=== PATIENT | female | born 1945 | race Caucasian/White ===

== ENCOUNTER → 2016-06-13 | Outpatient (CLI) | payer OTHER, MEDICARE | LOC: BHFA 13:15 | PROVIDERS: ATTEND Internal Medicine Cardiovascular Disease | DX: R01.1 Cardiac murmur, unspecified (principal) ==

== ENCOUNTER → 2016-07-22 | Outpatient (CLI) | payer OTHER, MEDICARE | LOC: BHFA 14:15 | PROVIDERS: ATTEND Internal Medicine Cardiovascular Disease | DX: I10 Essential (primary) hypertension (principal); I71.4 Abdominal aortic aneurysm, without rupture; E78.5 Hyperlipidemia, unspecified ==

== ENCOUNTER → 2016-07-29 | Outpatient (CLI) | payer OTHER, MEDICARE ==
[~2016-07-29] MED LIST: IOPAMIDOL (ISOVUE 370) 100 ML BTL IV ONE
[2016-07-29 15:09] LABS: ANION GAP 12 mEq/L (8-16); CALCIUM 9.5 mg/dL (8.5-10.4); CARBON DIOXIDE 24 mEq/l (22-31); CHLORIDE 102 mEq/L (97-110); CREATININE 0.7 mg/dL (0.6-1.0); GLOMERULAR FILTRATION RATE > 60; GLUCOSE 82 mg/dL (70-100); SODIUM 138 mEq/L (134-144)
[2016-07-29 15:10] LABS: POTASSIUM 4.4 mEq/L (3.3-5.0)
== END ==
LOC: FIMAGING 13:43
PROVIDERS: ATTEND Radiology Diagnostic Radiology
DX: Z09 Encounter for follow-up examination after completed treatment for conditions other than malignant neoplasm (principal); I71.4 Abdominal aortic aneurysm, without rupture
CPT/HCPCS: 74174; Q9967

== ENCOUNTER → 2017-01-04 | Outpatient (CLI) | payer OTHER, MEDICARE | LOC: FIMAGING 10:22 | PROVIDERS: ATTEND Registered Nurse | DX: M79.674 Pain in right toe(s) (principal) ==

== ENCOUNTER → 2017-01-05 | Outpatient (CLI) | payer OTHER, MEDICARE | LOC: FIMAGING 08:38 | PROVIDERS: ATTEND Radiology Diagnostic Radiology | DX: I71.4 Abdominal aortic aneurysm, without rupture (principal); N28.1 Cyst of kidney, acquired | CPT/HCPCS: 74174; Q9967 ==

== ENCOUNTER → 2017-02-09 | Outpatient (CLI) | payer OTHER, MEDICARE | LOC: FIMAGING 08:13 | PROVIDERS: ATTEND Family Medicine | DX: M16.12 Unilateral primary osteoarthritis, left hip (principal); M47.896 Other spondylosis, lumbar region; M47.897 Other spondylosis, lumbosacral region ==

== ENCOUNTER → 2017-06-07 | Outpatient (CLI) | payer OTHER, MEDICARE | LOC: FIMAGING 09:58 → EDSTATUS 09:59 | PROVIDERS: ATTEND Family Medicine | DX: M41.84 Other forms of scoliosis, thoracic region (principal); R07.81 Pleurodynia ==

== ENCOUNTER 2018-03-24 16:36 | Emergency (ER) | payer OTHER, MEDICARE ==
[2018-03-24 16:48] VITALS: BP 144/81
--- NOTE | 2018-03-24 16:54 | EDPHY ---
H & P Stated Complaint: Hand Lac Time Seen by Provider: 03/24/18 16:40 HPI/ROS: CHIEF COMPLAINT: Left hand laceration HISTORY OF PRESENT ILLNESS: 72-year-old female presents with left hand laceration. 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 Moderate bleeding, now stopped. Mild pain. Unknown tetanus. ROS: No numbness, weakness, excessive bleeding, syncopal episode, other injury. - Personal History Current Tetanus Diphtheria and Acellular Pertussis (TDAP): Yes - Medical/Surgical History Hx Asthma: No Hx Chronic Respiratory Disease: No Hx Diabetes: No Hx Cardiac Disease: No Hx Renal Disease: No Hx Cirrhosis: No Hx Alcoholism: No Hx HIV/AIDS: No Hx Splenectomy or Spleen Trauma: No Other PMH: hypothyroid, mini stroke may 2015, bunionectomy on the left, abdominal aortic aneurysm repair 04/2016,rare irregular pattern seen on heart monitor 01/2016,scoliosis,interstitual lung disease mild case (fibrosis) pt states, cataracts starting in 2015 - Social History Smoking Status: Never smoked Alcohol Use: Sober - Physical Exam Exam: Alert and oriented, pleasant Extremities: Left hand-1 cm laceration on the dorsal aspect of the left hand, between the 1st and 2nd metacarpals Skin: As above Neuro: Motor intact to active resistance and sensory intact to light touch Vascular: Capillary refill brisk distally. Constitutional: Initial Vital Signs Temperature (C) 36.7 C 03/24/18 16:46 Heart Rate 90 03/24/18 16:46 Respiratory Rate 18 03/24/18 16:46 Blood Pressure 144/81 H 03/24/18 16:46 O2 Sat (%) 92 03/24/18 16:46 O2 Delivery Mode Room Air Allergies/Adverse Reactions: No Known Allergies Allergy (Verified 04/10/17 15:13) Home Medications: Medication Instructions Recorded Aspirin [Aspirin 81mg (*)] 81 mg PO DAILY 10/28/15 Levothyroxine [Synthroid 112 mcg 112 mcg PO DAILY06 #30 tab 04/27/16 (*)] Atorvastatin Calcium [Lipitor 20 20 mg PO HS 04/03/17 mg (*)] Cholecalciferol Vit D3 [Vitamin D3 1,000 units PO DAILY 04/03/17 (*)] Herbals/Supplements -Info Only 1 ea PO DAILY 04/03/17 Losartan Potassium [Cozaar 50 mg 50 mg PO DAILY 04/03/17 (*)] Metoprolol Succinate Xr [Toprol Xl 12.5 mg PO HS 04/03/17 25 mg (*)] Multivitamins [Multivitamin (*)] 1 each PO DAILY 04/03/17 [place]-3 Fatty Acids [Fish Oil 1000 1,000 mg PO DAILY 04/03/17 mg (*)] Vitamin B Complex [B Complex] 1 each PO DAILY 04/03/17 Medical Decision Making Procedures: Procedure: Laceration repair. The 1 cm laceration on the hand was anesthetized using lidocaine. The wound was irrigated, draped and explored to its base with a gloved finger. There were no deep structures involved. No foreign body palpable. The wound was repaired with 5 0 nylon. The wound repair was simple. - Data Points Medications Given: Discontinued Medications Diphtheria/Tetanus/Acell Pertussis (Boostrix) 0.5 ml IM .ONCE ONE Stop: 03/24/18 17:26 Last Admin: 03/24/18 17: Dose: 0.5 ml Departure - Departure Disposition: Home, Routine, Self-Care Clinical Impression: Laceration Condition: Good Instructions: Care For Your Stitches (ED), Laceration (ED) Additional Instructions: Return for suture removal in 10 days. Referrals: Monae Polo MD [Primary Care Provider] - As per Instructions
[2018-03-24] MEDS ORDERED: TDAP ADULT 0.5 ML INJ (BOOSTRIX) IM ONE ×2 (17:25)
== END 2018-03-24 17:38 | disposition home or self-care (01) ==
PROC: 0HQGXZZ Repair Left Hand Skin, External Approach (ICD-10-PCS; principal; 2018-03-24)
DX: S61.412A Laceration without foreign body of left hand, initial encounter (principal); Z23 Encounter for immunization; W26.8XXA Contact with other sharp object(s), not elsewhere classified, initial encounter; Y92.9 Unspecified place or not applicable; Y93.9 Activity, unspecified; Y99.9 Unspecified external cause status

== ENCOUNTER 2018-05-09 05:37 | Inpatient (IN) | payer OTHER, MEDICARE ==
--- NOTE | 2018-04-26 11:22 | GHP ---
She will be an a.m. admission for surgery at [facility] on May 09, 2018. PROBLEM: Left hip severe degenerative arthritis. HISTORY OF PRESENT ILLNESS: The patient is a 72-year-old woman admitted for a left total hip arthrop lasty. In the past year, she has been experiencing increasing left hip and groin pain. Her ability to walk is limited. She occasionally gets a very sharp pain if she moves in the wrong direction. S he has been using turmeric and some type of oral stem cell preparation. Outpatient evaluation shows severe degenerative arthritis in her left hip. She has failed nonsurgical treatment. She will under go a left total hip arthroplasty. In April of 2016, she underwent surgery for an abdominal aneurysm. She is treated for hypertensio n, hypothyroidism and elevated cholesterol. She has severe scoliosis. No history of heart disease, stents, DVT, hepatitis, MRSA staph infection, sleep apnea, or bleeding d isorders. CURRENT MEDICATIONS: Losartan 20 mg every morning, metoprolol 25 mg every evening. Atorvastatin. S ynthroid. She also takes 1 baby aspirin per day. DRUG ALLERGIES: Gabapentin, cause altered vision. Metal allergy: None. Latex allergy: None. SOCIAL HISTORY: The patient is single. She does not smoke cigarettes or drink alcohol. 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 PHYSICAL EXAMINATION: VITAL SIGNS: Height 5 feet 7 inches. Weight 150 pounds. BMI 23.5. EYES: C onjunctivae and sclerae are clear. Pupils round reactive. She has had bilateral cataract surgery wi th lens implants. MOUTH: Good oral hygiene. No loose teeth. CHEST: Clear. HEART: Regular rhyth m. No murmurs. EXTREMITIES: Pertinent findings are limited to her hip. She has full hip extension and 110 degrees of flexion. External rotation 30 degrees. Internal rotation 10 degrees. Abduction 30 degrees. She has an anterior groin incision from her previous vascular surgery. IMAGING: Her films show very severe degenerative arthritis of her left hip with no remaining cartila ge space. She is 4 or 5 mm short on the left. She also has severe degenerative change in the lower lumbar spine and at the lumbosacral junction. IMPRESSION ON ADMISSION: 1. Left hip advanced degenerative arthritis. She is prepared for a left total hip arthroplasty. 2. Treatment for hypertension. 3. Treatment for hypothyroidism. 4. Treatment for elevated cholesterol. 5. Severe scoliosis. 6. Treatment of surgical correction of abdominal aneurysm. PLAN: She will undergo a left total hip arthroplasty. The surgery has been described to her, includ ing the risks, complications, expectations, and recovery time. I have discussed with her the risk of dislocation, leg length inequality. Infection and sciatic nerve injury. With her stiff scoliotic l umbar spine, she is probably at increased risk for postoperative hip instability. She lives alone. She is going to make arrangements to have someone stay with her for 2 nights. She has also requested home physical therapy. All her questions have been answered, and she consents to surgery. /[id number]/MODL
[2018-05-09] MEDS ORDERED: ACETAMINOPHEN 325 MG TAB PO ONE (06:00)
[2018-05-09] MEDS ORDERED: ceFAZolin 2 GM/DEXTROSE 100 ML IV ONE (06:00)
[2018-05-09] MEDS ORDERED: FAMOTIDINE 20 MG TAB PO ONE (06:00)
[2018-05-09] MEDS ORDERED: TRANEXAMIC ACID 3,000 MG in NS (SYRINGE) 50 ML IRR ONE (06:00)
[2018-05-09] MEDS ORDERED: ROPIVACAINE 0.2% 80 MG, EPINEPHrine 0.2 MG, KETOROLAC TROMETHAMINE 30 MG in SYRINGE 0 ML IU ONE (06:00)
[2018-05-09] MEDS ORDERED: TRANEXAMIC ACID 1,000 MG in NS 100 ML IV ONE ×2 (06:00→08:00)
[2018-05-09] MEDS ORDERED: ONDANSETRON 4 MG/2 ML VIAL IVP ONE (06:00)
[2018-05-09] MEDS ORDERED: DEXAMETHASONE 4 MG/ML VIAL IVP ONE (06:00)
[2018-05-09] MEDS ORDERED: LR 1,000 ML IV ONE (06:23)
[2018-05-09] MEDS ORDERED: ceFAZolin 1 GM/5 ML SYR ONE (06:53)
[2018-05-09] MEDS ORDERED: TRANEXAMIC ACID 3,000 MG/50 ML BAG IRR ONE (06:53)
--- NOTE | 2018-05-09 06:54 | PDANEPAE ---
ANE History of Present Illness L hip DJD, here for MELISSA ANE Past Medical History - Cardiovascular History Hx Hypertension: Yes Hx Arrhythmias: No Hx Chest Pain: No Hx Coronary Artery / Peripheral Vascular Disease: Yes Hx CHF / Valvular Disease: No Hx Palpitations: No Cardiovascular History Comment: AAA repair. DYSLIPIDEMIA. PVD - Pulmonary History Hx COPD: No Hx Asthma/Reactive Airway Disease: No Hx Recent Upper Respiratory Infection: No Hx Oxygen in Use at Home: No Hx Sleep Apnea: No Sleep Apnea Screening Result - Last Documented: Negative Pulmonary History Comment: INTERSTITIAL LUNG DISEASE- has not had any f/u in a year - Neurologic History Hx Cerebrovascular Accident: Yes Hx Seizures: No Hx Dementia: No Neurologic History Comment: TIA 05/2015 NO RESIDUAL ISSUES. scoliosis - Endocrine History Hx Diabetes: No Endocrine History Comment: HYPOTHYROIDISM - Renal History Hx Renal Disorders: No Renal History Comment: incontinence - Liver History Hx Hepatic Disorders: No - Neurological & Psychiatric Hx Hx Neurological and Psychiatric Disorders: No - Cancer History Hx Cancer: No - Congenital Disorder History Hx Congenital Disorders: No - GI History Hx Gastrointestinal Disorders: No - Other Health History Other Health History: wears glasses - Chronic Pain History Chronic Pain: Yes (scolliosis) - Surgical History Prior Surgeries: 04/15/16 AAA repair with Grant/ Adin. TONSILLECTOMY CHILD. BUNIONECTOMY 2001 ANE Review of Systems Review of Systems: - Exercise capacity METS (RN): 4 METS ANE Patient History - Allergies Allergies/Adverse Reactions: No Known Allergies Allergy (Verified 04/10/17 15:13) - Home Medications Home Medications: Aspirin [Aspirin 81mg (*)] 81 mg PO DAILY 10/28/15 [Last Taken 05/05/18] Atorvastatin Calcium [Lipitor 20 mg (*)] 20 mg PO HS 04/03/17 [Last Taken ] Cholecalciferol Vit D3 [Vitamin D3 (*)] 1,000 units PO DAILY 04/03/17 [Last Taken 1 Week Ago ~05/02/18] Herbals/Supplements -Info Only 1 ea PO DAILY 04/03/17 [Last Taken 1 Week Ago ~] Losartan Potassium [Cozaar 50 mg (*)] 50 mg PO DAILY 04/03/17 [Last Taken 05:00] Metoprolol Succinate Xr [Toprol Xl 25 mg (*)] 12.5 mg PO HS 04/03/17 [Last Taken 05/08/18] Multivitamins [Multivitamin (*)] 1 each PO DAILY 04/03/17 [Last Taken 1 Week Ago ~05/02/18] [place]-3 Fatty Acids [Fish Oil 1000 mg (*)] 1,000 mg PO DAILY 04/03/17 [Last Taken 1 Week Ago ~05/02/18] Vitamin B Complex [B Complex] 1 each PO DAILY 04/03/17 [Last Taken 1 Week Ago ~ 05/02/18] - NPO status NPO Since - Liquids (Date): 05/09/18 NPO Since - Liquids (Time): 02:00 NPO Since - Solids (Date): 05/08/18 NPO Since - Solids (Time): 20:00 - Smoking Hx Smoking Status: Never smoked - Family Anes Hx Family Hx Anesthesia Complications: NONE ANE Labs/Vital Signs - Vital Signs Blood Pressure: 143/77 Heart Rate: 69 Respiratory Rate: 18 O2 Sat (%): 94 Height: 171.45 cm Weight: 68.039 kg ANE Physical Exam - Airway Neck exam: FROM Mallampati Score: Class 2 Mouth exam: normal dental/mouth exam - Pulmonary Pulmonary: no respiratory distress - Cardiovascular Cardiovascular: regular rate and rhythym - ASA Status ASA Status: III ANE Anesthesia Plan Anesthesia Plan: GA with mask, spinal Total IV Anesthesia: Yes
[2018-05-09] MEDS ORDERED: MIDAZOLAM 2 MG/2 ML VIAL IVP ONE ×2 (06:56→07:48)
[2018-05-09] MEDS ORDERED: LIDOCAINE 2% 5 ML SDV ONE (07:00)
[2018-05-09] MEDS ORDERED: PHENYLEPHRINE 10 MG/ML SDV ONE (07:00)
[2018-05-09] MEDS ORDERED: PROPOFOL/EMULSION 500 MG/50 ML BOTTLE IV ONE (07:00)
[2018-05-09] MEDS ORDERED: fentaNYL 100 MCG/2 ML INJ ONE (07:00)
[2018-05-09] MEDS ORDERED: BUPIVACAINE/DEXTROSE 7.5MG/ML 2 ML SPINAL AMP SP ONE (07:00)
--- NOTE | 2018-05-09 07:00 | PDHPUP ---
History & Physical Update H&P update statement: This history and physical update is based on an assessment of the patient which was completed after admission or registration (within 24 hours), but prior to the surgery/procedure. H&P update: H&P reviewed & patient examined
[2018-05-09] MEDS ORDERED: PROMETHAZINE HCL 25 MG/ML INJ IVP PRN ×2 (07:49→08:56)
[2018-05-09] MEDS ORDERED: HYDROmorphONE/DILAUDID 2 MG/ML INJ IVP PRN (07:49)
[2018-05-09] MEDS ORDERED: ACETAMINOPHEN 500 MG TAB PO PRN (07:49)
[2018-05-09] MEDS ORDERED: MEPERIDINE 25 MG/0.5 ML AMP IVP PRN (07:49)
[2018-05-09] MEDS ORDERED: NALOXONE HCL 0.4 MG/ML INJ IVP PRN (07:49)
[2018-05-09] MEDS ORDERED: fentaNYL 100 MCG/2 ML INJ IVP PRN (07:49)
[2018-05-09] MEDS ORDERED: LR 500 ML IV PRN (07:49)
[2018-05-09] MEDS ORDERED: oxyCODONE IR 5 MG TAB PO PRN (07:49)
[2018-05-09] MEDS ORDERED: DIAZEPAM 5 MG/ML 1 ML SYR IVP PRN (07:49)
[2018-05-09] MEDS ORDERED: BISACODYL 10 MG SUPP PR PRN (08:56)
[2018-05-09] MEDS ORDERED: METOCLOPRAMIDE 10 MG/2 ML VIAL IVP PRN (08:56)
[2018-05-09] MEDS ORDERED: PROMETHAZINE HCL 25 MG SUPPR PR PRN (08:56)
[2018-05-09] MEDS ORDERED: ONDANSETRON DISINTEGRATING 4 MG TAB PO PRN (08:56)
[2018-05-09] MEDS ORDERED: DIPHENOXYLATE/ATROPINE LOMOTIL 1 TAB PO PRN (08:56)
[2018-05-09] MEDS ORDERED: MAGNESIUM HYDROXIDE 30 ML UDCUP PO PRN (08:56)
[2018-05-09] MEDS ORDERED: NS 500 ML IV PRN (08:56)
[2018-05-09] MEDS ORDERED: POLYETHYLENE GLYCOL 3350 17 GM PKT PO PRN (08:56)
[2018-05-09] MEDS ORDERED: LACTULOSE 20 GM/30 ML UDCUP PO PRN (08:56)
[2018-05-09] MEDS ORDERED: diphenhydrAMINE 25 MG CAP PO PRN (08:56)
[2018-05-09] MEDS ORDERED: ONDANSETRON 4 MG/2 ML VIAL IVP PRN (08:56)
[2018-05-09] MEDS ORDERED: TEMAZEPAM 15 MG CAP PO PRN (08:56)
--- NOTE | 2018-05-09 08:57 | POSTOPPROG ---
Post Op Note Date of Operation: 05/09/18 Surgeon: Noe Newton Lead Net Software Developer: Dharmesh Anesthesiologist: Crista Anesthesia: IV Sedation, Spinal Post-op Diagnosis: Left hip severe degenerative arthritis Procedure: Left total hip arthroplasty. Dual mobility. Inf/Abcess present in the surg proc area at time of surgery?: No EBL: 100-500
[2018-05-09] MEDS ORDERED: LR 1,000 ML IV SCH (09:00)
--- NOTE | 2018-05-09 09:12 | POSTANESTH ---
Post Anesthetic Evaluation Cardiovascular Status: Normal, Stable Respiratory Status: Normal, Stable Level of Consciousness/Mental Status: Can Participate in Eval Pain Control: Adequate, Prn Tx Ordered Nausea/Vomiting Control: Adequate, Prn Tx Ordered Complications Possibly Related to Anesthesia: None Noted (Moving bilateral LE and no complaints)
[2018-05-09] MEDS ORDERED: FAMOTIDINE 20 MG TAB ONE (09:18)
--- NOTE | 2018-05-09 09:39 | GOP ---
DATE OF OPERATION: 05/09/2018 SURGEON: Noe Newton MD FIELD OPERATIONS COORDINATOR: Gilson Eckert, PAC, and Trent Espitia CFA. ANESTHESIA: Combination of Marcaine, spinal, and IV sedation. ANESTHESIOLOGIST: Jayne Tobin DO. PREOPERATIVE DIAGNOSIS: Left hip severe degenerative arthritis. POSTOPERATIVE DIAGNOSIS: Left hip severe degenerative arthritis. PROCEDURE PERFORMED: 05/09/2018, left total hip arthroplasty, ceramic femoral head on highly cross-linked polyethylene, dual mobility. FINDINGS: ESTIMATED BLOOD LOSS: About 300 mL. The sponge and needle count were correct on 2 occasions. DESCRIPTION OF PROCEDURE: The patient was given 2 g of IV Ancef preoperatively within 60 minutes of surgery. She also received 1000 mg of IV tranexamic acid. She was placed on the operating room table and given spinal anesthesia with Marcaine by Dr. Tobin. She was then placed supine and given IV sedation. A Solomon catheter was not used. She wore a SUJATHA stocking and SCD on the nonoperative leg. She was rolled to the right lateral decubitus position. The position was secured with the pegboard table attachment. An axillary roll was used, and all pressure points were carefully padded. I was careful to lock her pelvis in a rigid vertical position. Her perineum was isolated with plastic adhesive drapes. The left hip and left lower extremity were prepped with ChloraPrep. They were draped free using sterile sheets, stockinette, and Ioban plastic adhesive drapes. The World Health Organization time-out was performed to verify the correct surgical side and site and the correct patient identity. The Boomer time-out was also performed. I made a 5-inch straight oblique posterolateral hip skin incision. Her subcutaneous tissues were sharply divided, and hemostasis was obtained using electrocautery. The fascia anshu was identified and split along the axis of its fibers. I curved posteriorly and proximally, and split the fascia of the gluteus rik and bluntly split the muscle fibers in line with their orientation. The Charnley self-retaining retractor was inserted. Her sciatic nerve was located, partially exposed, and protected throughout the procedure. The external rotators and the posterior hip capsule were divided as separate layers at the base of the femoral neck, tagged, and reflected posteriorly. An 8 -inch Steinmann pin was inserted vertically into the ilium, superior to the acetabulum. An 8-inch drill bit was inserted vertically into the greater trochanter and parallel to the first pin. The distance between the two was measured for leg length reference. Her femoral head was dislocated posteriorly. Severe degenerative changes were present on the femoral head. Her femoral neck was osteotomized at the appropriate level and inclination. I was careful to preserve all the posterior capsule and most of the anterior capsule. The remnant of her damaged labrum was excised. I prepared the femur first. This allowed me to medical sales representative the amount of natural femoral neck anteversion. This, in turn, allowed me to later determine the correct amount of cup anteversion. She had about 12-15 degrees of natural femoral neck anteversion. The canal was opened laterally with a box chisel. I hand broached sequentially up to a size 7. I used a size 7 Accolate II high- offset broach as a trial stem. I was careful to lateralize adequately. I used a high offset because it more accurately reflected her preoperative anatomy. Appropriate retractors were inserted to expose the acetabulum. The acetabulum was reamed sequentially up to 53 mm. I selected a 54 mm Gisell Tritanium Trident II cluster hole hemispherical shell. This was tapped securely into place in the proper degree of anteversion and inclination. I used the transverse acetabular ligament and other acetabular bony landmarks to help me properly orient the cup. Because of her severe lumbosacral degenerative arthritis and lumbosacral stiffness, I chose to use a dual-mobility system to increase her stability. A series of trial reductions were performed to determine length and stability. I obtained an intraoperative cross-table AP pelvis x-ray. It demonstrated good position of the acetabular component and femoral stem. The leg lengths were appropriate. She was short preoperatively, and I was intentionally lengthening her a few millimeters. The modular dual-mobility [place] metal liner was inserted into the acetabular component and tapped securely into place. The [place] Accolade II stem in size 7 with high offset was inserted press-fit and was very tight. I did 1 final trial reduction and confirmed that the -2.7 mm neck length was the proper combination. The dual-mobility head component was assembled on the [employer] [place] stand. I was using a 28 mm ceramic head with a -2.7 mm neck length. The Voodoo modular dual-mobility X3 insert with a 28 mm inside diameter and a size 42E outside diameter was assembled and tapped securely onto the clean trunnion. The hip was irrigated, cleaned, and reduced 1 final time. She had excellent stability and appropriate length. 40 mL of the joint anesthetic cocktail was injected into the capsule, the deep musculature, and subcutaneous tissues around the skin edges. The joint was thoroughly irrigated 1 final time with a dilute Betadine solution. Her sciatic nerve was reinspected and looked unharmed. 50 mL of the tranexamic acid solution was irrigated into the wound and left in place. The external rotators and the posterior hip capsule were repaired in separate layers with #2 FiberWire sutures through drill holes in the greater trochanter. This produced a strong posterior capsular and external rotator repair. Her fascia anshu was closed first with 2 interrupted [id number] #2 FiberWire sutures followed by a running #2 barbed Ethicon Stratafix PDO suture. Subcutaneous tissues were closed with interrupted 2-0 Monocryl sutures followed by a running 0 barbed Ethicon Stratafix Monoderm suture. The skin was closed with a running 3-0 barbed Ethicon Stratafix Monoderm subcuticular suture. The skin edges were reapproximated and sealed with Dermabond glue. The wound was covered with a large Mepilex waterproof dressing. The sterile Mepilex sacral dressing was also applied. A long-leg SUJATHA stocking and SCD were applied to her left lower extremity. She wore a stocking and SCD on the opposite leg during the procedure. An abduction pillow was placed between her knees. She was awakened from anesthesia and rolled to the supine position on her gurney. She was taken to PACU in satisfactory condition. There were no recognized intraoperative complications. IMPLANTS: I used a Gisell Trident II Tritanium cluster hole acetabular shell with an outside diameter of 54 mm. I used a dual-mobility system with a 28 mm ceramic head with a -2.7 mm neck length. I used the [place] Voodoo dual- mobility X3 insert with a 28 mm inside diameter and a 42 mm outside diameter. Pb Eckert and Trent Espitia acted as surgical assistants. Their assistance was a medical necessity for safe completion of the procedure. /[id number]/MODL MTDD
[2018-05-09] MEDS ORDERED: RANITIDINE HCL 150 MG/10 ML UDCUP PO ONE (09:45)
[2018-05-09] MEDS ORDERED: ONDANSETRON 4 MG/2 ML VIAL ONE (09:56)
[2018-05-09] MEDS: SENNOSIDES/DOCUSATE SODIUM TAB PO SCH ×2 (11:05→20:37)
[2018-05-09] MEDS: KETOROLAC 15 MG/1 ML SDV IVP SCH ×2 (12:16→19:08)
[2018-05-09] MEDS: ACETAMINOPHEN 325 MG TAB PO SCH ×2 (12:16→19:07)
--- NOTE | 2018-05-09 12:59 | PDMN ---
Medical Necessity Medical necessity: Pt meets IP criteria as of 05/09/2018 per and [facility] S-[id number] ( MELISSA); Medicare IP only procedure
[2018-05-09] MEDS: ceFAZolin 2 GM/DEXTROSE 100 ML IV SCH ×2 (14:14→20:40)
[2018-05-09] MEDS: traMADol 50 MG TAB PO PRN ×2 (14:42→22:06)
[2018-05-09] MEDS: CYCLOBENZAPRINE 10 MG TAB PO PRN (20:37)
[2018-05-09] MEDS: FAMOTIDINE 20 MG TAB PO SCH (20:37)
[2018-05-09] MEDS: METOPROLOL SUCCINATE XR 25 MG TAB PO SCH (20:37)
[2018-05-09] MEDS: ATORVASTATIN CALCIUM 20 MG TAB PO SCH (20:37)
[2018-05-09] MEDS: ASPIRIN 325 MG TAB PO SCH (20:37)
[2018-05-10] MEDS: ACETAMINOPHEN 325 MG TAB PO SCH ×5 (00:10→23:45)
[2018-05-10] MEDS: KETOROLAC 15 MG/1 ML SDV IVP SCH ×2 (00:51→05:51)
[2018-05-10] MEDS: LEVOTHYROXINE 88 MCG TAB PO SCH (05:46)
--- NOTE | 2018-05-10 07:20 | SOAPPROG ---
SOAP Progress Note Assessment/Plan: Assessment: Afebrile. Awake and alert. Very little pain. On Tylenol. She has been up and walking in the soto already. Her dressing is dry. H&H is good. Postop films look excellent. Sciatic nerve intact. Plan: Up with physical therapy and occupational therapy this morning. Probable discharge this afternoon. 05/10/18 07:19 Objective: Vital Signs Temp Pulse Resp BP Pulse Ox 36.4 C 68 16 100/54 L 92 05/10/18 04:00 05/10/18 04:00 05/10/18 04:00 05/10/18 04:00 05/10/18 04:00 Laboratory Results 05/10/18 04:10 05/09/18 05/10/18 05/11/18 05:59 05:59 05:59 Intake Total 2850 Output Total 1600 Balance 1250 ICD10 Worksheet Patient Problems: Problems Problem Status Onset Osteoarthritis of left hip Acute Anxiety Acute Aortic aneurysm Acute Hypertension Acute Impaired cognition Acute Impaired mobility and activities of daily living Acute
--- NOTE | 2018-05-10 07:22 | PDIAF ---
- Diagnosis Diagnosis: L hip OA Code Status: Full Code - Medication Management Discharge Medications: electronically signed and located in the Home Medication List. PICC Care - Routine: N/A - Orders Services needed: Home Care, Physical Therapy, Occupational Therapy Home Care Face to Face: I certify that this patient was under my care and that I had the required [id number] encounter meeting the encounter requirements on the discharge day. My findings support the fact that the patient is homebound as defined in Home Care Face to Face Continued: CMS Chapter 7 Medicare Benefits Manual 30.1.1 , The condition of the patient is such that there exists a normal inability to leave home and consequently, leaving home would require a considerable and taxing effort. Diet Recommendation: no restrictions on diet Diet Texture: Regular Texture Diet Wound Care Instructions: keep clean and dry. You may shower. Activity/Weight Bearing Restrictions: as tolerated. No flexion >90 degrees x 3 weeks. - Follow Up Care Current Providers and Referrals: Monae Polo MD [Primary Care Provider] - Noe Newton MD [Medical Doctor] - 05/31/18
--- NOTE | 2018-05-10 07:34 | GDS ---
ADMISSION DIAGNOSIS: Left hip severe degenerative arthritis. DISCHARGE DIAGNOSIS: Left hip severe degenerative arthritis. OPERATION PERFORMED: 05/09/18, left total hip arthroplasty, dual mobility. POSTOPERATIVE COMPLICATIONS: None. CONDITION ON DISCHARGE: Improved. DESCRIPTION OF HOSPITAL COURSE: The patient was admitted to the hospital on the morning of surgery. Her admission CBC, electrolytes, BUN, and creatinine were all normal. The same day, under a combination of Marcaine, spinal, and IV sedation, she underwent a left total hip arthroplasty with a ceramic femoral head and dual mobility design. Postoperatively, she was treated with multimodal DVT prophylaxis including aspirin. On the first postoperative day, her hemoglobin and hematocrit were 11.2 and 33.2. She was seen by Physical Therapy and made good progress with ambulation and stairs. By the time of discharge, she was afebrile and was independent walking with her walker. DISPOSITION: The patient is discharged to her home. She will have home PT and home occupational therapy. She may progress to full weightbearing on the left as tolerated. Use an abduction pillow in bed for 3 weeks. Use SUJATHA stockings for 1 week. Continue aspirin 325 mg p.o. daily for 21 days. She has prescriptions for Celebrex, tramadol, and oxycodone for pain control. I will see her back in the office on March 31, 2018. If there are any problems, she is to call me at the office. ADDENDUM: The patient stayed an additional night secondary to slow progress with physical therapy and occupational therapy. On the 2nd postoperative day, the patient's hemoglobin and hematocrit were 10.9 and 32.8. She made good progress on postop day #2 and was discharged to home with home physical therapy and occupational therapy. Patient has a followup in 3 weeks in the office. She is to call sooner if she has any problems. /[id number]/MODL and [id number]/MODL [facility]
[2018-05-10] MEDS: ASPIRIN 325 MG TAB PO SCH (08:04)
[2018-05-10] MEDS: FAMOTIDINE 20 MG TAB PO SCH ×2 (08:05→19:54)
[2018-05-10] MEDS: FERROUS SULFATE 325 MG TAB PO SCH ×2 (08:05→19:58)
[2018-05-10] MEDS: LOSARTAN POTASSIUM 50 MG TAB PO SCH (08:05)
[2018-05-10] MEDS: SENNOSIDES/DOCUSATE SODIUM TAB PO SCH ×2 (08:05→19:54)
[2018-05-10] MEDS: CYCLOBENZAPRINE 10 MG TAB PO PRN ×2 (08:08→20:29)
--- NOTE | 2018-05-10 10:10 | ASMTCMCOM ---
CM Note CM Note Notes: Pt had planned total hip, resides alone. Pt has DME and friend will stay with her at d/c. PT rec [facility]HC, pt and MD amenable. Pt requests [facility], referral sent in [facility] and [place] alerted. Orders in and to be obtained via [employer]. Pt to d/c today or tomorrow. D/c plan of care: [facility] PT/OT Date Signed: 05/10/2018 10:09 AM Electronically Signed By:JANAK Bauman
[2018-05-10] MEDS: METOPROLOL SUCCINATE XR 25 MG TAB PO SCH (19:56)
[2018-05-10] MEDS: ATORVASTATIN CALCIUM 20 MG TAB PO SCH (19:58)
[2018-05-10] MEDS: traMADol 50 MG TAB PO PRN (20:29)
[2018-05-10] MEDS: oxyCODONE IR 5 MG TAB PO PRN (23:44)
[2018-05-11] MEDS: oxyCODONE IR 5 MG TAB PO PRN (01:12)
[2018-05-11] MEDS: ACETAMINOPHEN 325 MG TAB PO SCH (07:11)
[2018-05-11] MEDS: FERROUS SULFATE 325 MG TAB PO SCH (07:11)
[2018-05-11] MEDS: LEVOTHYROXINE 88 MCG TAB PO SCH (07:11)
[2018-05-11] MEDS: ASPIRIN 325 MG TAB PO SCH (08:20)
[2018-05-11] MEDS: SENNOSIDES/DOCUSATE SODIUM TAB PO SCH (08:21)
[2018-05-11] MEDS: LOSARTAN POTASSIUM 50 MG TAB PO SCH (08:21)
[2018-05-11] MEDS: FAMOTIDINE 20 MG TAB PO SCH (08:22)
[2018-05-11 08:29] VITALS: BP 118/57
--- NOTE | 2018-05-11 10:31 | SOAPPROG ---
SOAP Progress Note Assessment/Plan: Assessment: POD #2, s/p L MELISSA Awake, alert, afebrile. Moderate pain last night. OOB w/ PT/OT Dressing clean and dry. H/H ok. Pt stayed additional night secondary to slow progress w/ ambulation and safety precautions. Plan: D/c to home later today. Home PT/OT ordered. F/u in office in 3 weeks. 05/11/18 10:29 Objective: Vital Signs Temp Pulse Resp BP Pulse Ox 37.0 C 60 16 118/57 L 94 05/11/18 08:27 05/11/18 08:27 05/11/18 08:27 05/11/18 08:27 05/11/18 08:27 Laboratory Results 05/11/18 04:26 05/10/18 05/11/18 05/12/18 05:59 05:59 05:59 Intake Total 2850 1100 200 Output Total 1600 1150 Balance 1250 -50 200 ICD10 Worksheet Patient Problems: Problems Problem Status Onset Osteoarthritis of left hip Acute Anxiety Acute Aortic aneurysm Acute Hypertension Acute Impaired cognition Acute Impaired mobility and activities of daily living Acute
--- NOTE | 2018-05-11 10:55 | ASMTLACE ---
LACE Length of stay for Answers: 3 days current admission Acuity / Level of Answers: Yes Care: Did the patient have an inpatient admission? Comorbidities - select Answers: Other Notes: HTN all that apply # of Emergency department Answers: 1-2 visits in the last 6 months Social determinants Answers: Mental health diagnosis (anxiety, depression, pers onality disorders, etc.) Score: 11 Date Signed: 05/11/2018 10:54 AM Electronically Signed By:JANAK Bauman
--- NOTE | 2018-05-11 10:55 | ASMTCMCOM ---
CM Note CM Note Notes: Pt will d/c today with [facility], [facility] updated. Date Signed: 05/11/2018 10:54 AM Electronically Signed By:JANAK Bauman
--- NOTE | 2018-05-11 14:55 | ASDISCHSUM ---
Discharge Information Plan Status:Home with Home Health Medically Cleared to Leave: Discharge Date:05/11/2018 12:33 PM CM D/C Disposition: ADT D/C Disposition:Home Health Service Projected Discharge Date:05/11/2018 11:00 AM Transportation at D/C: Discharge Delay Reason: Follow-Up Date:05/11/2018 11:00 AM Discharge Slot: Final Diagnosis: Placement Information Referral Type:*Home Health Care Services Referral ID:[id number]-[id number] Provider Name:[facility] Address 1:[address] Address 2: City:[place] Selection Factors: State:[place] Patient Contact Information Contact Name:GEMA Relationship:Daughter Address: Work Phone: City: [facility] Phone: [facility] Code: Email: Financial Information Financial Class:Medicare Primary Plan Desc:MEDICARE INPATIENT Primary Plan Number:[id number] Secondary Plan Desc:[employer]/MDR SUPPLEMENT Secondary Plan Number:[id number] Assessment Information [facility] CM Progress Note CM Note CM Note Notes: Pt had planned total hip, resides alone. Pt has DME and friend will stay with her at d/c. PT rec [facility], pt and MD amenable. Pt requests [facility], [facility] alerted. Orders in and to be obtained via [employer]. Pt to d/c today or tomorrow. D/c plan of care: [facility] PT/OT Date Signed: 05/10/2018 10:09 AM Electronically Signed By:JANAK Bauman LACE LACE Length of stay for Answers: 3 days current admission Acuity / Level of Answers: Yes Care: Did the patient have an inpatient admission? Comorbidities - select Answers: Other Notes: HTN all that apply # of Emergency department Answers: 1-2 visits in the last 6 months Social determinants Answers: Mental health diagnosis (anxiety, depression, pers onality disorders, etc.) Score: 11 Date Signed: 05/11/2018 10:54 AM Electronically Signed By:JANAK Bauman BC CM Progress Note CM Note CM Note Notes: Pt will d/c today with [facility], [facility] updated. Date Signed: 05/11/2018 10:54 AM Electronically Signed By:JANAK Bauman Intervention Information
== END 2018-05-11 12:33 | disposition home health service (06) | DRG 470 ==
LOC: F3N 05:37
PROVIDERS: ADMIT Orthopaedic Surgery; ATTEND Orthopaedic Surgery
PROC: 0SRB04A Replacement of Left Hip Joint with Ceramic on Polyethylene Synthetic Substitute, Uncemented, Open Approach (ICD-10-PCS; principal; 2018-05-09 07:15)
DX: M16.12 Unilateral primary osteoarthritis, left hip (principal); I10 Essential (primary) hypertension; E78.5 Hyperlipidemia, unspecified; I73.9 Peripheral vascular disease, unspecified; J84.10 Pulmonary fibrosis, unspecified; I71.4 Abdominal aortic aneurysm, without rupture; E03.9 Hypothyroidism, unspecified; M41.9 Scoliosis, unspecified
CPT/HCPCS: 97110-GP; 97116-GP; 97161-GP; 97166-GO; 97530-GP; 97535-GO; G8978-GP-CJ; G8979-GP-CI; G8980-GP-CI; G8987-GO-CJ; G8988-GO-CI; G8989-GO-CI; J0171; J0690; J1100; J1885; J2250; J2370; J2405; J2704; J2795; J3010

== ENCOUNTER → 2018-07-28 | Outpatient (CLI) | payer OTHER, MEDICARE | LOC: FIMAGING 09:29 | PROVIDERS: ATTEND Family Medicine | DX: M79.644 Pain in right finger(s) (principal) ==

== ENCOUNTER 2018-10-13 22:52 | Emergency (ER) | payer OTHER, MEDICARE | END 2018-10-14 00:09 | disposition home or self-care (01) ==